=== PATIENT | male | born 1970 | race Caucasian/White ===

== ENCOUNTER 2020-02-27 15:42 | Emergency (ER) | payer OTHER, SELFPAY ==
[2020-02-27 15:55] VITALS: BP 150/83; PULSE 73; RESP 16; TEMP 36.6; O2SAT 98
--- NOTE | 2020-02-27 15:55 | ED.UPPEXIN ---
HPI - Extremity Injury (Upper) General Chief Complaint: Extremity Injury, Upper Stated Complaint: Swollen finger Time Seen by Provider: 02/27/20 16:05 Source: patient and RN notes reviewed Mode of arrival: ambulatory Limitations: no limitations History of Present Illness HPI narrative: 49-year-old male presents with concern for swollen fourth digit of his right hand. He denies injury, trauma. Reports swelling, tenderness. MD complaint: injury to: right and hand Related Data Home Medications Medication Instructions Recorded Confirmed clonazepam 0.5 mg PO DAILY 02/27/20 02/27/20 divalproex 500 mg PO BID 02/27/20 02/27/20 glipizide 10 mg PO BID 02/27/20 02/27/20 Allergies Allergy/AdvReac Type Severity Reaction Status Date / Time tramadol Allergy Unknown Headache Verified 02/27/20 16:04 Review of Systems Review of Systems: Narrative: CONSTITUTIONAL: Denies malaise, chills, sweats, or fever. CARDIOVASCULAR: Denies chest pain, palpitations RESPIRATORY: Denies dyspnea. SKIN: Denies open skin MUSCULOSKELETAL: Reports swelling, tenderness to the fourth digit of the right hand NEUROLOGIC: Denies numbness, weakness All systems reviewed & are unremarkable except as noted in HPI and below PMFSH Family History Family History (Updated 02/10/16 @ 13:58 by DOCTOR UNKNOWN) Other Diabetes mellitus Family history of cardiovascular disease Social History Social History Alcohol intake: current Comments At time of signature, agree with nursing past medical, surgical, social and family history. There is no relevant family history pertinent to the presenting complaint Exam Narrative: Exam Narrative: GENERAL: Well-appearing, well-nourished, and in no acute distress. HEAD: Normocephalic EYES: PERRLA, conjunctivae clear NECK: Supple. CHEST: Speaks in full sentences. No respiratory distress. HEART: Regular rate and rhythm. Normal and equal peripheral pulses. EXTREMITIES: Fourth digit of right hand has normal sensation. No clubbing, cyanosis, or edema noted. No tenderness. Skin intact. Normal digital cascade with flexion of fingers, median, ulnar and radial nerve intact. Normal thumb opposition. Good capillary refill and radial pulse. Distal capillary refill <3 seconds. SKIN: Warn, dry, intact, pink. Fourth digit of right hand has edema, induration consistent with cellulitis NEURO: Alert and oriented x3. PSYCH: Normal mood and affect Course Course Emergency Course: Patient is aware of diagnosis, understands and agrees to treatment plan. Anticipatory guidance given. Patient agrees to follow-up as directed and is aware of reasons to seek care at the emergency department. Portions of this record may have been created with voice recognition software Vital Signs Vital signs: Vital Signs Temperature 97.8 F 02/27/20 15:55 Pulse Rate 73 02/27/20 15:55 Respiratory Rate 16 02/27/20 15:55 Blood Pressure 150/83 H 02/27/20 15:55 Pulse Oximetry 98 02/27/20 15:55 Temperature 97.8 F 02/27/20 15:55 Pulse Rate 73 02/27/20 15:55 Respiratory Rate 16 02/27/20 15:55 Blood Pressure 150/83 H 02/27/20 15:55 Pulse Oximetry 98 02/27/20 15:55 Reviewed. Patient has history of hypertension MDM - Extremity Injury (Upper) MDM Narrative Medical decision making narrative: Patients pain is consistent with musculoskeletal etiology. No signs of neurological or vascular compromise on exam. Compartments and tissues are soft without signs of compartment syndrome. Pain is felt appropriate for further evaluation on an outpatient basis. Critical Care Time Critical Care Time Critical Care Time: No Discharge Plan Discharge Clinical Impression: Cellulitis Qualifiers: Site of cellulitis: extremity Site of cellulitis of extremity: upper extremity Laterality: right Qualified Code(s): L03.113 - Cellulitis of right upper limb Patient Disposition: Home, Self-Care Condition: Stable Instructions: Antibiotic Form
== END 2020-02-27 16:19 | disposition home or self-care (01) ==
PROVIDERS: Emergency Provider Nurse Practitioner; PCP Nurse Practitioner Family
DX: L03.113 Cellulitis of right upper limb (principal); E11.9 Type 2 diabetes mellitus without complications; Z79.84 Long term (current) use of oral hypoglycemic drugs; F41.9 Anxiety disorder, unspecified; F31.9 Bipolar disorder, unspecified
CPT/HCPCS: 99213; G0463